=== PATIENT | male | born 1975 | race Caucasian/White ===

== ENCOUNTER 2019-07-20 14:37 | Emergency (ER) | payer OTHER ==
[~2019-07-20] VITALS: Ht 172.7 cm; Wt 78.6 kg
[2019-07-20 14:40] VITALS: BP 108/54
[2019-07-20] MEDS ORDERED: triamcinolone acetonide 40mg/ml inj IM ONE (16:10)
[2019-07-20] MEDS ORDERED: HYDR28CR14 TOP (16:16)
[2019-07-20] MEDS ORDERED: PRED20TA PO (16:16)
== END 2019-07-20 16:48 | disposition home or self-care (01) ==
LOC: ER 14:38
DX: L23.7 Allergic contact dermatitis due to plants, except food (principal); Z79.899 Other long term (current) drug therapy
CPT/HCPCS: 96372; 99283; J3301